=== PATIENT | male | born 1980 | race Caucasian/White ===

== ENCOUNTER 2017-11-11 08:21 | Emergency (ER) | payer SELFPAY ==
[~2017-11-11] VITALS: Ht 182.9 cm; Wt 90.7 kg
--- NOTE | 2017-11-11 08:37 | ED THROAT/DENTAL COMPLAINT ---
History of Present Illness General Chief Complaint: Sore Throat, Dental Pain Stated Complaint: FEEL LIKE THROAT IS SWOLLEN Source: patient Exam Limitations: no limitations Vital Signs & Intake/Output Vital Signs & Intake/Output Vital Signs Date Time Temp Pulse Resp B/P B/P Pulse O2 O2 Flow FiO2 Mean Ox Delivery Rate 11/11 1029 98.0 79 18 115/75 100 Room Air 11/11 0828 96.5 18 97 Room Air Allergies Coded Allergies: No Known Allergies (11/11/17) Reconcile Medications diphenhydrAMINE HCl (Benadryl) 25 MG CAP 1 CAP PO TID PRN INFLAMMATION Famotidine (Pepcid) 20 MG TABLET 1 TAB PO DAILY INFLAMMATION Prednisone 10 MG TABLET 1 TAB PO AD INFLAMMATION DAY1/DAY2 FOUR TABS DAY3/DAY4 THREE TABS DAY 5/DAY6 TWO TABS DAY 7 ONE TAB Triage Note: 37 Y/O MALE C/O SWOLLEN UVULA AND TONSILS SINCE WAKING THIS AM. DENIES PAIN. DENIES OTHER COMPLAINTS. WAS "FINE" WHEN GOING TO SLEEP LAST PM. STREP CULTURE SENT. +SWELLING NOTED. Triage Nurses Notes Reviewed? yes Onset: Abrupt Duration: constant Timing: recent history Injury Environment: home Severity: moderate Severity Numbers: 5 HPI: Patient is a 37-year-old male with unremarkable past medical history since emergency room stating that yesterday evening he was in his normal state of health patient woke up 3 hours prior to arrival with concerns of swollen throat and a uvula that was swollen were patient states "it feels swollen in weird" Patient denies any sore throat fever chills difficulty breathing or swallowing, rash or recent insect bite ear pain tongue swelling lip swelling Denies any specific allergen exposure (Kristopher Anderson) Past History Travel History Traveled to [place] past 21 day No Medical History Any Pertinent Medical History? none Neurological: NONE EENT: NONE Cardiovascular: NONE Respiratory: NONE Gastrointestinal: NONE Hepatic: NONE Renal: NONE Musculoskeletal: NONE Psychiatric: NONE Endocrine: NONE Blood Disorders: NONE Cancer(s): NONE SAFETY AND OCCUPATIONAL HEALTH MANAGER/Reproductive: NONE Surgical History Surgical History: non-contributory Psychosocial History What is your primary language [place] Tobacco Use: Current Daily Use Daily Tobacco Use Amount/Type: => 5 Cigarettes daily Family History Hx Contributory? No (Kristopher Anderson) Review of Systems Review of Systems Constitutional: Reports: no symptoms. EENTM: Reports: see HPI. Respiratory: Reports: no symptoms. Cardiovascular: Reports: no symptoms. GI: Reports: no symptoms. Genitourinary: Reports: no symptoms. Musculoskeletal: Reports: no symptoms. Skin: Reports: no symptoms. Neurological/Psychological: Reports: no symptoms. Hematologic/Endocrine: Reports: no symptoms. Immunologic/Allergic: Reports: no symptoms. All Other Systems: Reviewed and Negative (Kristopher Anderson) Physical Exam Physical Exam General Appearance: no apparent distress, alert, comfortable Head: atraumatic Eyes: Bilateral: normal appearance. Ears: Bilateral: canal normal, Tympanic normal. Nose: normal inspection Mouth/Throat: normal mouth inspection, tonsillar swelling, uvula swelling Neck: normal inspection, no midline tenderness Cardiovascular/Respiratory: normal breath sounds, normal peripheral pulses, regular rate/rhythm Neurologic/Psych: no motor/sensory deficits, awake, alert, oriented x 3, normal gait, normal mood/affect Skin: intact, normal color, warm/dry Comments: No tongue swelling no lip swelling no exudates of pharynx No lymphadenopathy No stridor Core Measures ACS in differential dx? No Sepsis Present: No Sepsis Focused Exam Completed? No (Kristopher Anderson) Progress Differential Diagnosis: carious tooth, epiglottitis, Ludwigs angina, meningitis, odontogenic abscess, jordan-tonsillar abscess, pharyngeal for. body, stomatitis/ gingivitis, strep pharyngitis, tooth fracture Plan of Care: Orders Procedure Date/time Status THROAT CULTURE W/QUICK STREP 11/11 0823 Active Patient on initial presentation and exam findings has concerns of uvulitis Initial rapid strep was negative no exudates noted Centor criteria 0 Strep culture pending No concerns of Srikanth's angina or peritonsillar abscess 0937- patient was reevaluated again resting comfortably bedside no apparent distress no respiratory distress clear lungs auscultation no stridor 1047- patient again was reevaluated that to be resting at bedside clear lungs auscultation speaking in clear sentences no respiratory distress Upon discharge patient looks well no apparent distress and will comply with discharge instructions and had no questions (Kristopher Anderson) Departure Departure Disposition: HOME OR SELF CARE Condition: Stable Clinical Impression Primary Impression: Uvulitis Referrals: Larry VALENTINE,Catina Arredondo Additional Instructions: As discussed begin the prednisone prescription tomorrow as you've received this in the emergency room today, continue the prescription Pepcid and Benadryl as directed. If symptoms worsen or if YOU develop a running symptom return to emergency room, if no better in 2 days follow-up with ENT Dr. Juarez. PRESCRIPTIONS waiting at [facility]. Departure Forms: Customer Survey General Discharge Information Prescriptions: Current Visit Scripts Prednisone 1 TAB PO AD #19 TAB DAY1/DAY2 FOUR TABS DAY3/DAY4 THREE TABS DAY 5/DAY6 TWO TABS DAY 7 ONE TAB diphenhydrAMINE HCl (Benadryl) 1 CAP PO TID PRN INFLAMMATION #9 CAP Famotidine (Pepcid) 1 TAB PO DAILY #5 TAB (Kristopher Anderson) PA/MEAT LUGGER Co-Sign Statement Statement: ED Attending supervision documentation- I saw and evaluated the patient. I have also reviewed all the pertinent lab results and diagnostic results. I agree with the findings and the plan of care as documented in the PA's/MEAT LUGGER's documentation. x I have reviewed the ED Record and agree with the PA's/MEAT LUGGER's documentation. [] Additions or exceptions (if any) to the PAs/MEAT LUGGER's note and plan are summarized below: [] (Batool VALENTINE,Joao)
[2017-11-11 10:29] VITALS: BP 115/75
[2017-11-11] MEDS ORDERED: PREDNISONE10 M2 PO (10:44)
[2017-11-11] MEDS ORDERED: PEPCID20 M1 PO (10:44)
[2017-11-11] MEDS ORDERED: BENADRYL25 MG PO (10:44)
== END 2017-11-11 10:52 ==
LOC: ERH 08:21
DX: K12.2 Cellulitis and abscess of mouth (principal); F17.210 Nicotine dependence, cigarettes, uncomplicated
CPT/HCPCS: 96374; 96375; J1200; J2930